=== PATIENT | male | born 1955 | race Asian ===

== ENCOUNTER 2017-05-07 19:01 | Inpatient (IN) | payer OTHER ==
[~2017-05-07] VITALS: Ht 167.6 cm; Wt 50.6 kg
[2017-05-07] MEDS ORDERED: CEPH500 PO (19:32)
[2017-05-07] MEDS ORDERED: QUET200T PO (19:32)
[2017-05-07] MEDS ORDERED: SEVEC800 PO (19:32)
[2017-05-07] MEDS ORDERED: CARV6 PO (19:32)
[2017-05-07 19:42] LABS: EOSINOPHILS % (AUTO) 1.5 % (1.0-6.0); HEMATOCRIT 35.4 % (41-53); HEMOGLOBIN 12.1 g/dL (13.5-17.5); LYMPHOCYTES # (AUTO) 0.3 K/uL (1.0-4.8); LYMPHOCYTES % (AUTO) 3.5 % (22.0-44.0); MEAN CORPUSCULAR HEMOGLOBIN 30.6 pg (26.0-34.0); MEAN CORPUSCULAR HGB CONC 34.2 G/dL (31.0-37.0); MEAN CORPUSCULAR VOLUME 90 fL (80-100); MONOCYTES % (AUTO) 0.3 % (2.0-9.0); NEUTROPHILS # (AUTO) 8.4 K/uL (1.8-7.7); NEUTROPHILS % (AUTO) 93.7 % (40.0-70.0); PLATELET COUNT (AUTO) 329 K/uL (150-450); RED BLOOD CELL COUNT(AUTO) 3.95 MIL/uL (4.50-5.90); RED CELL DISTRIBUTION WIDTH 16.9 % (11.5-14.5)
[2017-05-07 19:49] LABS: INR 0.9 (0.9-1.1)
[2017-05-07 20:06] LABS: B-TYPE NATRIURETIC PEPTIDE 170 pg/mL (0-100)
[2017-05-07 20:11] LABS: ANION GAP 12 mmol/L (8-16); CALCIUM, TOTAL 8.6 mg/dL (8.8-10.5); CARBON DIOXIDE 28 mmol/L (22-29); CHLORIDE 96 mmol/L (98-107); CREATININE 9.72 mg/dL (0.60-1.30); GLOMERULAR FILTR. RATE CALC 6 mL/min (>60); POTASSIUM 4.8 mmol/L (3.5-5.1); SODIUM SERUM 136 mmol/L (136-145); UREA NITROGEN, BLOOD 97 mg/dL (7-18)
[2017-05-07 20:22] LABS: ALANINE AMINOTRANSFERASE 58 U/L (12-78); ALBUMIN 3.7 g/dL (3.4-5.0); ASPARTATE AMINOTRANSFERASE 29 U/L (15-37); BILIRUBIN,TOTAL 0.3 mg/dL (0.1-1.0); CREATINE KINASE MB 2.4 ng/mL (0-5); CREATINE KINASE, TOTAL 81 U/L (39-308); TOTAL PROTEIN, SERUM 8.1 g/dL (6.4-8.2)
[2017-05-07] MEDS ORDERED: 0.9% SODIUM CHLORIDE 10 ML SYRINGE IVP PRN (20:45)
[2017-05-07] MEDS ORDERED: ACETAMINOPHEN 325 MG TABLET PO PRN (20:45)
[2017-05-07] MEDS ORDERED: ONDANSETRON HCL 4 MG/2 ML VIAL IVP PRN (20:45)
[2017-05-07 21:36] VITALS: BP 128/77
[2017-05-08 00:11] LABS: GLUCOSE,POINT OF CARE 145 MG/DL (70-110)
[2017-05-08 00:23] VITALS: BP 126/71
[2017-05-08] MEDS ORDERED: ZOLPIDEM TARTRATE 10 MG TABLET PO PRN (01:00)
[2017-05-08] MEDS ORDERED: MAGNESIUM HYDROXIDE SUSPENSION 30 ML UDCUP PO PRN (01:00)
[2017-05-08] MEDS ORDERED: IPRATROPIUM BROMIDE 0.5 MG/2.5 ML NEB SOLUTION NEB PRN (01:00)
[2017-05-08] MEDS ORDERED: MORPHINE SULFATE 2 MG/ML SYRINGE IVP PRN (01:00)
[2017-05-08 04:23] VITALS: BP 119/68
[2017-05-08] MEDS: NITROGLYCERIN 2% (1 GM=INCH) PACKET TP SCH ×3 (05:45→17:27)
[2017-05-08] MEDS ORDERED: PNEUMOCOCCAL VACCINE POLYVALENT 0.5 ML VIAL [PPSV23] IM ONE (06:45)
[2017-05-08 07:59] VITALS: BP 105/67
[2017-05-08] MEDS ORDERED: SEVELAMER CARBONATE 800 MG TABLET PO SCH (08:00)
[2017-05-08] MEDS: DOCUSATE SODIUM 100 MG CAPSULE PO SCH ×2 (08:27→19:41)
[2017-05-08] MEDS: CARVEDILOL 6.25 MG TABLET PO SCH ×2 (08:27→19:41)
[2017-05-08] MEDS: PANTOPRAZOLE SODIUM 40 MG/VIAL IVP SCH (08:28)
[2017-05-08 08:49] LABS: APPEARANCE,URINE TURBID (CLEAR); GLUCOSE, URINE (UA) NEGATIVE (NEGATIVE); KETONES,URINE 40 mg/dL (NEGATIVE); LEUKOCYTE ESTERASE ,URINE LARGE (NEGATIVE); OCCULT BLOOD,URINE LARGE (NEGATIVE); PH,URINE 5.5 (5.0-8.0); PROTEIN,URINE SEE CONFIRM (NEGATIVE)
[2017-05-08 10:06] LABS: ADD UA MICROSCOPIC YES
[2017-05-08 10:09] LABS: RBC,URINE Full Field /HPF (0-2); SULFOSALICYLIC ACID,URINE 4+ (Negative)
[2017-05-08 10:10] LABS: WBC,URINE >100 /HPF (0-5)
[2017-05-08] MEDS ORDERED: DEXTROSE 50%-WATER 25 GM/50 ML SYRINGE IVP PRN (11:00)
[2017-05-08 11:43] VITALS: BP 113/61
[2017-05-08] MEDS: SEVELAMER CARBONATE 800 MG TABLET PO SCH ×2 (12:21→17:27)
[2017-05-08] MEDS: INSULIN ASPART 100 UNITS/ML SQ PRN ×2 (12:24→18:04)
[2017-05-08] MEDS: VITAMIN B COMP/VIT C/FOLIC ACID CAPSULE PO SCH (13:13)
[2017-05-08] MEDS ORDERED: SODIUM CHLORIDE 0.9% 1,000 ML IV ONE (14:33)
[2017-05-08] MEDS: HYDROCODONE/ACETAMINOPHEN 5-325 MG TABLET PO PRN ×2 (15:30→19:41)
[2017-05-08 16:21] VITALS: BP 100/37
[2017-05-08] MEDS: ACETAMINOPHEN 325 MG TABLET PO PRN (17:27)
[2017-05-08] MEDS: CefTRIAXone 1 GM/DEXTROSE 50 ML IV SCH (18:00)
[2017-05-08 19:27] VITALS: BP 116/69
[2017-05-08] MEDS: HEPARIN SODIUM,PORCINE 5,000 UNITS/ML VIAL SQ SCH (19:41)
[2017-05-08] MEDS: QUEtiapine FUMARATE 200 MG TABLET PO SCH (19:41)
[2017-05-08 23:08] LABS: GLUCOSE COMMENT 1 Received Meds; GLUCOSE,POINT OF CARE 191 MG/DL (70-110)
[2017-05-08 23:08] LABS: GLUCOSE,POINT OF CARE 178 MG/DL (70-110)
[2017-05-08 23:08] LABS: GLUCOSE COMMENT 1 Received Meds; GLUCOSE,POINT OF CARE 142 MG/DL (70-110)
[2017-05-09] VITALS (11 sets, daily range): BP systolic 92–124; BP diastolic 45–75
[2017-05-09] MEDS: HYDROCODONE/ACETAMINOPHEN 5-325 MG TABLET PO PRN ×2 (01:53→18:09)
[2017-05-09] MEDS: NITROGLYCERIN 2% (1 GM=INCH) PACKET TP SCH ×4 (05:52→18:09)
[2017-05-09 06:16] LABS: EOSINOPHILS % (AUTO) 0.5 % (1.0-6.0); HEMATOCRIT 30.8 % (41-53); HEMOGLOBIN 10.6 g/dL (13.5-17.5); LYMPHOCYTES # (AUTO) 0.6 K/uL (1.0-4.8); LYMPHOCYTES % (AUTO) 5.3 % (22.0-44.0); MEAN CORPUSCULAR HEMOGLOBIN 30.8 pg (26.0-34.0); MEAN CORPUSCULAR HGB CONC 34.3 G/dL (31.0-37.0); MEAN CORPUSCULAR VOLUME 90 fL (80-100); MONOCYTES # (AUTO) 0.9 K/uL (0.1-1.0); MONOCYTES % (AUTO) 7.4 % (2.0-9.0); PLATELET COUNT (AUTO) 227 K/uL (150-450); RED BLOOD CELL COUNT(AUTO) 3.43 MIL/uL (4.50-5.90); RED CELL DISTRIBUTION WIDTH 17.2 % (11.5-14.5); WHITE BLOOD COUNT (AUTO) 11.5 K/uL (4.5-11.0)
[2017-05-09 07:01] LABS: NEUTROPHILS % (AUTO) 86.8 % (40.0-70.0)
[2017-05-09 07:07] LABS: CALCIUM, TOTAL 8.4 mg/dL (8.8-10.5); CHOL/HDL RATIO 2.5 (4.2-7.3); CREATININE 6.74 mg/dL (0.60-1.30); MAGNESIUM 2.5 mg/dL (1.80-2.40); PHOSPHORUS 5.1 mg/dL (2.5-4.9); POTASSIUM 4.6 mmol/L (3.5-5.1)
[2017-05-09] MEDS: SEVELAMER CARBONATE 800 MG TABLET PO SCH ×3 (08:09→18:09)
[2017-05-09] MEDS: PANTOPRAZOLE SODIUM 40 MG/VIAL IVP SCH (08:10)
[2017-05-09] MEDS: PRAVASTATIN SODIUM 20 MG TABLET PO SCH (08:10)
[2017-05-09] MEDS: CLOPIDOGREL BISULFATE 75 MG TABLET PO SCH (08:10)
[2017-05-09] MEDS: DOCUSATE SODIUM 100 MG CAPSULE PO SCH ×2 (08:10→20:49)
[2017-05-09] MEDS: HEPARIN SODIUM,PORCINE 5,000 UNITS/ML VIAL SQ SCH (08:11)
[2017-05-09] MEDS: CARVEDILOL 6.25 MG TABLET PO SCH ×2 (09:00→20:49)
[2017-05-09] MEDS ORDERED: SESTAMIBI TC99M/UD ISOTOPE 1 EA INJ INJ ONE ×2 (09:10→13:05)
[2017-05-09 10:08] LABS: RBC MORPHOLOGY COMMENT ABNORMAL RBC MORPH
[2017-05-09] MEDS ORDERED: REGADENOSON 0.4 MG/5 ML PF SYRINGE IVP ONE ×2 (12:00→12:59)
[2017-05-09] MEDS ORDERED: AMINOPHYLLINE 25 MG/ML 10 ML VIAL IVP ONE ×3 (12:00→13:10)
[2017-05-09] MEDS: VITAMIN B COMP/VIT C/FOLIC ACID CAPSULE PO SCH (13:44)
[2017-05-09] MEDS: CefTRIAXone 1 GM/DEXTROSE 50 ML IV SCH (13:45)
[2017-05-09] MEDS: INSULIN ASPART 100 UNITS/ML SQ PRN ×2 (13:47→18:10)
[2017-05-09] MEDS: ONDANSETRON HCL 4 MG/2 ML VIAL IVP PRN (13:59)
[2017-05-09 14:18] LABS: GLUCOSE COMMENT 1 Received Meds; GLUCOSE,POINT OF CARE 148 MG/DL (70-110)
[2017-05-09 14:18] LABS: GLUCOSE,POINT OF CARE 122 MG/DL (70-110)
[2017-05-09 18:03] LABS: APPEARANCE,URINE TURBID (CLEAR); GLUCOSE, URINE (UA) 100 mg/dL (NEGATIVE); KETONES,URINE >=80 mg/dL (NEGATIVE); LEUKOCYTE ESTERASE ,URINE LARGE (NEGATIVE); OCCULT BLOOD,URINE LARGE (NEGATIVE); PROTEIN,URINE SEE CONFIRM (NEGATIVE)
[2017-05-09 20:02] LABS: GLUCOSE COMMENT 1 Received Meds; GLUCOSE,POINT OF CARE 153 MG/DL (70-110)
[2017-05-09 20:11] LABS: RBC,URINE Full Field /HPF (0-2); SULFOSALICYLIC ACID,URINE 4+ (Negative)
[2017-05-09 20:13] LABS: WBC,URINE >100 /HPF (0-5)
[2017-05-09] MEDS: QUEtiapine FUMARATE 200 MG TABLET PO SCH (20:49)
[2017-05-09] MEDS: ACETAMINOPHEN 325 MG TABLET PO PRN (20:49)
[2017-05-09 21:43] LABS: GLUCOSE,POINT OF CARE 147 MG/DL (70-110)
[2017-05-10] VITALS (7 sets, daily range): BP systolic 102–139; BP diastolic 47–86
[2017-05-10] MEDS: NITROGLYCERIN 2% (1 GM=INCH) PACKET TP SCH ×5 (05:30→23:23)
[2017-05-10] MEDS ORDERED: SODIUM CHLORIDE 0.9% 1,000 ML IV ONE (05:57)
[2017-05-10] MEDS: HYDROCODONE/ACETAMINOPHEN 5-325 MG TABLET PO PRN ×2 (07:21→20:30)
[2017-05-10 07:25] LABS: HEMATOCRIT 29.7 % (41-53); MEAN CORPUSCULAR HEMOGLOBIN 30.4 pg (26.0-34.0); MEAN CORPUSCULAR HGB CONC 33.6 G/dL (31.0-37.0); MEAN CORPUSCULAR VOLUME 90 fL (80-100); PLATELET COUNT (AUTO) 198 K/uL (150-450); RED BLOOD CELL COUNT(AUTO) 3.29 MIL/uL (4.50-5.90); RED CELL DISTRIBUTION WIDTH 17.1 % (11.5-14.5)
[2017-05-10 07:40] LABS: ALBUMIN 3.1 g/dL (3.4-5.0); BILIRUBIN,TOTAL 0.3 mg/dL (0.1-1.0); CALCIUM, TOTAL 8.5 mg/dL (8.8-10.5); CREATININE 4.1 mg/dL (0.60-1.30); POTASSIUM 3.6 mmol/L (3.5-5.1); TOTAL PROTEIN, SERUM 7.6 g/dL (6.4-8.2)
[2017-05-10] MEDS: SEVELAMER CARBONATE 800 MG TABLET PO SCH ×3 (08:00→17:48)
[2017-05-10 08:06] LABS: BAND NEUTROPHILS % (MANUAL) 24 % (1-5); LYMPHOCYTES % (MANUAL) 15 % (22-44); TOTAL CELLS COUNTED 100
[2017-05-10 08:07] LABS: RBC MORPHOLOGY COMMENT ABNORMAL RBC MORPH
[2017-05-10] MEDS: CARVEDILOL 6.25 MG TABLET PO SCH ×2 (09:00→20:37)
[2017-05-10] MEDS: ONDANSETRON HCL 4 MG/2 ML VIAL IVP PRN (09:10)
[2017-05-10] MEDS: PANTOPRAZOLE SODIUM 40 MG/VIAL IVP SCH (09:10)
[2017-05-10] MEDS: CLOPIDOGREL BISULFATE 75 MG TABLET PO SCH (10:29)
[2017-05-10] MEDS: VITAMIN B COMP/VIT C/FOLIC ACID CAPSULE PO SCH (10:29)
[2017-05-10] MEDS: DOCUSATE SODIUM 100 MG CAPSULE PO SCH ×2 (10:29→20:29)
[2017-05-10] MEDS: PRAVASTATIN SODIUM 20 MG TABLET PO SCH (10:29)
[2017-05-10] MEDS: INSULIN ASPART 100 UNITS/ML SQ PRN ×2 (11:42→17:54)
[2017-05-10] MEDS: CefTRIAXone 1 GM/DEXTROSE 50 ML IV SCH (12:31)
[2017-05-10] MEDS ORDERED: MAGNESIUM CITRATE 300 ML ORAL SOLUTION PO PRN (16:15)
[2017-05-10] MEDS ORDERED: SODIUM CHLORIDE 0.9% 100 ML ONE (17:38)
[2017-05-10] MEDS: MEROPENEM 500 MG in SODIUM CHLORIDE 0.9% 50 ML IV SCH (18:11)
[2017-05-10] MEDS: QUEtiapine FUMARATE 200 MG TABLET PO SCH (20:29)
[2017-05-11 05:10] VITALS: BP 120/72
[2017-05-11] MEDS: NITROGLYCERIN 2% (1 GM=INCH) PACKET TP SCH ×4 (05:21→23:16)
[2017-05-11 06:33] LABS: GLUCOSE,POINT OF CARE 163 MG/DL (70-110)
[2017-05-11 06:33] LABS: GLUCOSE COMMENT 1 Received Meds; GLUCOSE,POINT OF CARE 162 MG/DL (70-110)
[2017-05-11] MEDS: INSULIN ASPART 100 UNITS/ML SQ PRN ×4 (06:40→21:10)
[2017-05-11 07:19] VITALS: BP 132/62
[2017-05-11 07:32] LABS: BASOPHILS # (AUTO) 0.01 K/uL (0.00-0.20); BASOPHILS % (AUTO) 0.1 % (0.0-2.0); EOSINOPHILS # (AUTO) 0.07 K/uL (0.00-0.70); HEMATOCRIT 28.4 % (41-53); HEMOGLOBIN 9.5 g/dL (13.5-17.5); LYMPHOCYTES # (AUTO) 0.5 K/uL (1.0-4.8); LYMPHOCYTES % (AUTO) 7.5 % (22.0-44.0); MEAN CORPUSCULAR HEMOGLOBIN 30.3 pg (26.0-34.0); MEAN CORPUSCULAR HGB CONC 33.6 G/dL (31.0-37.0); MEAN CORPUSCULAR VOLUME 90 fL (80-100); MONOCYTES # (AUTO) 0.7 K/uL (0.1-1.0); MONOCYTES % (AUTO) 10.5 % (2.0-9.0); NEUTROPHILS # (AUTO) 5.4 K/uL (1.8-7.7); NEUTROPHILS % (AUTO) 80.9 % (40.0-70.0); PLATELET COUNT (AUTO) 191 K/uL (150-450); RED BLOOD CELL COUNT(AUTO) 3.16 MIL/uL (4.50-5.90); RED CELL DISTRIBUTION WIDTH 16.5 % (11.5-14.5); WHITE BLOOD COUNT (AUTO) 6.7 K/uL (4.5-11.0)
[2017-05-11 07:36] LABS: INR 0.9 (0.9-1.1); PROTHROMBIN TIME 9.9 SEC (9.4-11.6)
[2017-05-11 07:55] LABS: CALCIUM, TOTAL 8.7 mg/dL (8.8-10.5); CREATININE 6.86 mg/dL (0.60-1.30); POTASSIUM 4.1 mmol/L (3.5-5.1)
[2017-05-11] MEDS: DOCUSATE SODIUM 100 MG CAPSULE PO SCH ×2 (08:32→21:00)
[2017-05-11] MEDS: PANTOPRAZOLE SODIUM 40 MG/VIAL IVP SCH (08:32)
[2017-05-11] MEDS: CLOPIDOGREL BISULFATE 75 MG TABLET PO SCH (08:32)
[2017-05-11] MEDS: VITAMIN B COMP/VIT C/FOLIC ACID CAPSULE PO SCH (08:33)
[2017-05-11] MEDS: SEVELAMER CARBONATE 800 MG TABLET PO SCH ×3 (08:33→17:02)
[2017-05-11] MEDS: CARVEDILOL 6.25 MG TABLET PO SCH ×2 (08:35→21:00)
[2017-05-11] MEDS: PRAVASTATIN SODIUM 20 MG TABLET PO SCH (08:44)
[2017-05-11 11:28] VITALS: BP 125/58
[2017-05-11 12:10] LABS: GLUCOSE,POINT OF CARE 99 MG/DL (70-110)
[2017-05-11 12:10] LABS: GLUCOSE,POINT OF CARE 224 MG/DL (70-110)
[2017-05-11 12:10] LABS: GLUCOSE COMMENT 1 Received Meds; GLUCOSE,POINT OF CARE 163 MG/DL (70-110)
[2017-05-11 12:10] LABS: GLUCOSE,POINT OF CARE 104 MG/DL (70-110)
[2017-05-11 15:24] VITALS: BP 149/77
[2017-05-11] MEDS: MEROPENEM 500 MG in SODIUM CHLORIDE 0.9% 50 ML IV SCH (17:02)
[2017-05-11 17:13] LABS: GLUCOSE,POINT OF CARE 171 MG/DL (70-110)
[2017-05-11 19:56] VITALS: BP 108/66
[2017-05-11] MEDS: QUEtiapine FUMARATE 200 MG TABLET PO SCH (21:00)
[2017-05-11] MEDS: HYDROCODONE/ACETAMINOPHEN 5-325 MG TABLET PO PRN (21:01)
[2017-05-11 22:08] LABS: GLUCOSE COMMENT 1 Received Meds; GLUCOSE,POINT OF CARE 189 MG/DL (70-110)
[2017-05-12] VITALS (7 sets, daily range): BP systolic 84–127; BP diastolic 51–84
[2017-05-12 04:20] LABS: APPEARANCE,URINE TURBID (CLEAR); GLUCOSE, URINE (UA) 100 mg/dL (NEGATIVE); KETONES,URINE 15 mg/dL (NEGATIVE); LEUKOCYTE ESTERASE ,URINE LARGE (NEGATIVE); OCCULT BLOOD,URINE LARGE (NEGATIVE); PROTEIN,URINE SEE CONFIRM (NEGATIVE)
[2017-05-12 04:35] LABS: SULFOSALICYLIC ACID,URINE 3+ (Negative)
[2017-05-12 04:36] LABS: RBC,URINE 51-100 /HPF (0-2); WBC,URINE 26-50 /HPF (0-5)
[2017-05-12] MEDS: NITROGLYCERIN 2% (1 GM=INCH) PACKET TP SCH ×4 (05:26→23:23)
[2017-05-12 06:28] LABS: CALCIUM, TOTAL 8.6 mg/dL (8.8-10.5); CREATININE 8.22 mg/dL (0.60-1.30)
[2017-05-12 06:36] LABS: INR 0.9 (0.9-1.1); PROTHROMBIN TIME 9.6 SEC (9.4-11.6)
[2017-05-12 07:35] LABS: BASOPHILS % (AUTO) 0.3 % (0.0-2.0); EOSINOPHILS % (AUTO) 1.7 % (1.0-6.0); HEMATOCRIT 28.7 % (41-53); HEMOGLOBIN 9.8 g/dL (13.5-17.5); LYMPHOCYTES # (AUTO) 0.6 K/uL (1.0-4.8); LYMPHOCYTES % (AUTO) 9.3 % (22.0-44.0); MEAN CORPUSCULAR HEMOGLOBIN 30.8 pg (26.0-34.0); MEAN CORPUSCULAR HGB CONC 34.1 G/dL (31.0-37.0); MEAN CORPUSCULAR VOLUME 90 fL (80-100); MONOCYTES # (AUTO) 0.6 K/uL (0.1-1.0); MONOCYTES % (AUTO) 9.2 % (2.0-9.0); NEUTROPHILS # (AUTO) 4.9 K/uL (1.8-7.7); NEUTROPHILS % (AUTO) 79.5 % (40.0-70.0); PLATELET COUNT (AUTO) 220 K/uL (150-450); RED BLOOD CELL COUNT(AUTO) 3.18 MIL/uL (4.50-5.90); RED CELL DISTRIBUTION WIDTH 16.8 % (11.5-14.5); WHITE BLOOD COUNT (AUTO) 6.2 K/uL (4.5-11.0)
[2017-05-12] MEDS: PANTOPRAZOLE SODIUM 40 MG/VIAL IVP SCH (08:20)
[2017-05-12] MEDS: DOCUSATE SODIUM 100 MG CAPSULE PO SCH ×2 (08:20→20:29)
[2017-05-12] MEDS: CARVEDILOL 6.25 MG TABLET PO SCH ×2 (08:20→20:29)
[2017-05-12] MEDS: VITAMIN B COMP/VIT C/FOLIC ACID CAPSULE PO SCH (08:20)
[2017-05-12] MEDS: SEVELAMER CARBONATE 800 MG TABLET PO SCH ×3 (08:20→18:14)
[2017-05-12] MEDS: PRAVASTATIN SODIUM 20 MG TABLET PO SCH (08:20)
[2017-05-12] MEDS ORDERED: SODIUM CHLORIDE 0.9% 2,000 ML IV ONE (10:20)
[2017-05-12 12:08] LABS: GLUCOSE,POINT OF CARE 177 MG/DL (70-110)
[2017-05-12] MEDS: INSULIN ASPART 100 UNITS/ML SQ PRN (12:14)
[2017-05-12] MEDS ORDERED: SODIUM CHLORIDE 0.9% IRRIG BTL 1,000 ML IRRIG ONE (15:52)
[2017-05-12 17:18] LABS: GLUCOSE,POINT OF CARE 100 MG/DL (70-110)
[2017-05-12] MEDS: MEROPENEM 500 MG in SODIUM CHLORIDE 0.9% 50 ML IV SCH (18:14)
[2017-05-12 19:58] LABS: GLUCOSE,POINT OF CARE 222 MG/DL (70-110)
[2017-05-12] MEDS: QUEtiapine FUMARATE 200 MG TABLET PO SCH (20:29)
[2017-05-12] MEDS: HYDROCODONE/ACETAMINOPHEN 5-325 MG TABLET PO PRN (20:30)
[2017-05-13] VITALS (18 sets, daily range): BP systolic 93–147; BP diastolic 57–106
[2017-05-13] MEDS: NITROGLYCERIN 2% (1 GM=INCH) PACKET TP SCH ×3 (05:27→17:51)
[2017-05-13 06:38] LABS: BASOPHILS % (AUTO) 0.3 % (0.0-2.0); EOSINOPHILS % (AUTO) 1.6 % (1.0-6.0); HEMATOCRIT 28.2 % (41-53); HEMOGLOBIN 9.7 g/dL (13.5-17.5); LYMPHOCYTES # (AUTO) 0.8 K/uL (1.0-4.8); LYMPHOCYTES % (AUTO) 11.6 % (22.0-44.0); MEAN CORPUSCULAR HEMOGLOBIN 30.8 pg (26.0-34.0); MEAN CORPUSCULAR HGB CONC 34.3 G/dL (31.0-37.0); MEAN CORPUSCULAR VOLUME 90 fL (80-100); MONOCYTES # (AUTO) 0.7 K/uL (0.1-1.0); MONOCYTES % (AUTO) 9.8 % (2.0-9.0); NEUTROPHILS # (AUTO) 5.3 K/uL (1.8-7.7); NEUTROPHILS % (AUTO) 76.7 % (40.0-70.0); PLATELET COUNT (AUTO) 233 K/uL (150-450); RED BLOOD CELL COUNT(AUTO) 3.13 MIL/uL (4.50-5.90); RED CELL DISTRIBUTION WIDTH 16.4 % (11.5-14.5); WHITE BLOOD COUNT (AUTO) 6.9 K/uL (4.5-11.0)
[2017-05-13 06:42] LABS: INR 0.9 (0.9-1.1); PROTHROMBIN TIME 9.9 SEC (9.4-11.6)
[2017-05-13 07:12] LABS: CREATININE 5.29 mg/dL (0.60-1.30); MAGNESIUM 2.8 mg/dL (1.80-2.40); PHOSPHORUS 3.1 mg/dL (2.5-4.9); POTASSIUM 4.8 mmol/L (3.5-5.1)
[2017-05-13] MEDS: SEVELAMER CARBONATE 800 MG TABLET PO SCH ×3 (08:00→17:42)
[2017-05-13] MEDS ORDERED: SODIUM BICARBONATE 50 MEQ/50 ML VIAL ONE (08:41)
[2017-05-13] MEDS ORDERED: LIDOCAINE HCL/PF 1% 30 ML VIAL ONE (08:41)
[2017-05-13] MEDS ORDERED: IOHEXOL 300 MG/ML 150 ML VIAL ONE (08:41)
[2017-05-13] MEDS: VITAMIN B COMP/VIT C/FOLIC ACID CAPSULE PO SCH (09:00)
[2017-05-13] MEDS: DOCUSATE SODIUM 100 MG CAPSULE PO SCH ×2 (09:00→20:25)
[2017-05-13] MEDS: GABAPENTIN 100 MG CAPSULE PO SCH (09:00)
[2017-05-13] MEDS: PRAVASTATIN SODIUM 20 MG TABLET PO SCH (09:00)
[2017-05-13] MEDS: CARVEDILOL 6.25 MG TABLET PO SCH ×2 (09:00→20:24)
[2017-05-13] MEDS: PANTOPRAZOLE SODIUM 40 MG/VIAL IVP SCH (09:00)
[2017-05-13] MEDS ORDERED: MIDAZOLAM HCL 2 MG/2 ML VIAL ONE (09:35)
[2017-05-13] MEDS ORDERED: FentaNYL CITRATE-PF 100 MCG/2 ML VIAL ONE (09:35)
[2017-05-13] MEDS ORDERED: HEPARIN SODIUM 1000 UNITS/NS 1,000 ML IARTER ONE (09:48)
[2017-05-13] MEDS ORDERED: SODIUM CHLORIDE 0.9% 500 ML IV ONE (09:48)
[2017-05-13] MEDS ORDERED: FentaNYL CITRATE-PF 100 MCG/2 ML VIAL IVP ONE (10:00)
[2017-05-13] MEDS ORDERED: LIDOCAINE 1% 30 ML/SOD BICARB 8.4% 4 ML SQ ONE (10:00)
[2017-05-13] MEDS ORDERED: IOHEXOL 300 MG/ML 150 ML VIAL IARTER ONE (10:00)
[2017-05-13] MEDS ORDERED: MIDAZOLAM HCL 2 MG/2 ML VIAL IVP ONE (10:00)
[2017-05-13] MEDS ORDERED: NITROGLYCERIN 400 MCG/SUBLINGUAL SPRAY 4.9 GM BOTTLE SL ONE ×2 (10:01→10:15)
[2017-05-13 14:33] LABS: GLUCOSE,POINT OF CARE 93 MG/DL (70-110)
[2017-05-13 14:48] LABS: GLUCOSE,POINT OF CARE 94 MG/DL (70-110)
[2017-05-13 14:48] LABS: GLUCOSE COMMENT 1 Received Meds; GLUCOSE,POINT OF CARE 225 MG/DL (70-110)
[2017-05-13] MEDS ORDERED: SODIUM CHLORIDE 0.9% 250 ML IV ONE (15:51)
[2017-05-13] MEDS: NITROGLYCERIN 400 MCG/SUBLINGUAL SPRAY 4.9 GM BOTTLE SL PRN ×2 (16:44→20:14)
[2017-05-13] MEDS: INSULIN ASPART 100 UNITS/ML SQ PRN (17:25)
[2017-05-13] MEDS: MEROPENEM 500 MG in SODIUM CHLORIDE 0.9% 50 ML IV SCH (17:51)
[2017-05-13] MEDS: QUEtiapine FUMARATE 200 MG TABLET PO SCH (20:24)
[2017-05-14] MEDS: NITROGLYCERIN 2% (1 GM=INCH) PACKET TP SCH ×3 (00:04→12:00)
[2017-05-14 04:00] VITALS: BP 116/60
[2017-05-14 04:43] VITALS: BP 116/60
[2017-05-14 06:48] LABS: GLUCOSE,POINT OF CARE 133 MG/DL (70-110)
[2017-05-14 06:48] LABS: GLUCOSE COMMENT 1 Received Meds; GLUCOSE,POINT OF CARE 149 MG/DL (70-110)
[2017-05-14 06:50] LABS: BASOPHILS % (AUTO) 0.4 % (0.0-2.0); EOSINOPHILS % (AUTO) 2.3 % (1.0-6.0); HEMATOCRIT 24.9 % (41-53); HEMOGLOBIN 8.6 g/dL (13.5-17.5); LYMPHOCYTES # (AUTO) 0.9 K/uL (1.0-4.8); LYMPHOCYTES % (AUTO) 11.9 % (22.0-44.0); MEAN CORPUSCULAR HEMOGLOBIN 30.8 pg (26.0-34.0); MEAN CORPUSCULAR HGB CONC 34.7 G/dL (31.0-37.0); MEAN CORPUSCULAR VOLUME 89 fL (80-100); MONOCYTES # (AUTO) 0.7 K/uL (0.1-1.0); MONOCYTES % (AUTO) 9.1 % (2.0-9.0); NEUTROPHILS # (AUTO) 5.9 K/uL (1.8-7.7); NEUTROPHILS % (AUTO) 76.3 % (40.0-70.0); PLATELET COUNT (AUTO) 236 K/uL (150-450); RED CELL DISTRIBUTION WIDTH 16.2 % (11.5-14.5); WHITE BLOOD COUNT (AUTO) 7.8 K/uL (4.5-11.0)
[2017-05-14 07:17] LABS: ALBUMIN 2.5 g/dL (3.4-5.0); BILIRUBIN,TOTAL 0.2 mg/dL (0.1-1.0); CALCIUM, TOTAL 8.7 mg/dL (8.8-10.5); CREATININE 6.99 mg/dL (0.60-1.30); POTASSIUM 5.2 mmol/L (3.5-5.1); TOTAL PROTEIN, SERUM 6.8 g/dL (6.4-8.2)
[2017-05-14 07:20] VITALS: BP 106/62
[2017-05-14 07:28] LABS: GLUCOSE,POINT OF CARE 138 MG/DL (70-110)
[2017-05-14] MEDS: SEVELAMER CARBONATE 800 MG TABLET PO SCH ×2 (08:06→12:00)
[2017-05-14] MEDS: HYDROCODONE/ACETAMINOPHEN 5-325 MG TABLET PO PRN (08:06)
[2017-05-14] MEDS: PANTOPRAZOLE SODIUM 40 MG/VIAL IVP SCH (08:07)
[2017-05-14] MEDS: NITROGLYCERIN 400 MCG/SUBLINGUAL SPRAY 4.9 GM BOTTLE SL PRN (08:26)
[2017-05-14] MEDS: CARVEDILOL 6.25 MG TABLET PO SCH (09:00)
[2017-05-14 11:17] VITALS: BP 91/60
[2017-05-14] MEDS: DOCUSATE SODIUM 100 MG CAPSULE PO SCH (14:27)
[2017-05-14] MEDS: PRAVASTATIN SODIUM 20 MG TABLET PO SCH (14:27)
[2017-05-14] MEDS: GABAPENTIN 100 MG CAPSULE PO SCH (14:27)
[2017-05-14] MEDS: VITAMIN B COMP/VIT C/FOLIC ACID CAPSULE PO SCH (14:27)
[2017-05-14 14:58] LABS: GLUCOSE COMMENT 1 Received Meds; GLUCOSE,POINT OF CARE 144 MG/DL (70-110)
[2017-05-14 15:04] VITALS: BP 101/57
[2017-05-15] MEDS ORDERED: EPOETIN ALFA 10,000 UNITS/ML VIAL SQ SCH (09:00)
== END 2017-05-14 17:45 | disposition short-term general hospital (02) | DRG 191 ==
LOC: EMS 19:04 → 5N 20:43 → ICU 05-13 11:00 → 5N 05-13 18:50
PROVIDERS: ADMIT Hospitalist; ATTEND Hospitalist
PROC: 02HV33Z Insertion of Infusion Device into Superior Vena Cava, Percutaneous Approach (ICD-10-PCS; 2017-05-07)
PROC: 5A1D70Z Performance of Urinary Filtration, Intermittent, Less than 6 Hours Per Day (ICD-10-PCS; 2017-05-08)
PROC: 5A1D70Z Performance of Urinary Filtration, Intermittent, Less than 6 Hours Per Day (ICD-10-PCS; 2017-05-10)
PROC: 5A1D70Z Performance of Urinary Filtration, Intermittent, Less than 6 Hours Per Day (ICD-10-PCS; 2017-05-12)
PROC: 4A023N7 Measurement of Cardiac Sampling and Pressure, Left Heart, Percutaneous Approach (ICD-10-PCS; principal; 2017-05-13)
PROC: B2111ZZ Fluoroscopy of Multiple Coronary Arteries using Low Osmolar Contrast (ICD-10-PCS; 2017-05-13)
PROC: B2151ZZ Fluoroscopy of Left Heart using Low Osmolar Contrast (ICD-10-PCS; 2017-05-13)
PROC: 5A1D70Z Performance of Urinary Filtration, Intermittent, Less than 6 Hours Per Day (ICD-10-PCS; 2017-05-14)
DX: I25.110 Atherosclerotic heart disease of native coronary artery with unstable angina pectoris (principal); E11.22 Type 2 diabetes mellitus with diabetic chronic kidney disease; K92.2 Gastrointestinal hemorrhage, unspecified; I12.0 Hypertensive chronic kidney disease with stage 5 chronic kidney disease or end stage renal disease; N18.6 End stage renal disease; E87.5 Hyperkalemia; R47.1 Dysarthria and anarthria; N39.0 Urinary tract infection, site not specified; R31.0 Gross hematuria; I69.351 Hemiplegia and hemiparesis following cerebral infarction affecting right dominant side; Z99.2 Dependence on renal dialysis; Z88.6 Allergy status to analgesic agent; Z79.899 Other long term (current) drug therapy; Z93.3 Colostomy status; Z85.048 Personal history of other malignant neoplasm of rectum, rectosigmoid junction, and anus; Z92.3 Personal history of irradiation; Z92.21 Personal history of antineoplastic chemotherapy
CPT/HCPCS: 74176; 78452; 82962; 83735; 84100; 87081; 87086; 87340; 90471; 90935; 93005; 93017; 93306; 93880; 93970; 99285; A9500; C9113; J0280; J0696; J1644; J2185; J2250; J2270; J2405; J2785; J3010; J3490; J7030; J7050; Q9967

== ENCOUNTER 2017-05-26 01:45 | Inpatient (IN) | payer OTHER ==
[2017-05-26] VITALS (7 sets, daily range): BP systolic 88–111; BP diastolic 50–61
[~2017-05-26] VITALS: Ht 175.3 cm; Wt 52.7 kg
[~2017-05-26 01:45] MED LIST: CARV6 PO; CEPH500 PO; QUET200T PO; SEVEC800 PO
[2017-05-26] MEDS ORDERED: DSS100 PO (01:52)
[2017-05-26] MEDS ORDERED: FOLI0.8T22 PO (01:52)
[2017-05-26] MEDS ORDERED: DOCU250C91 PO (01:52)
[2017-05-26] MEDS ORDERED: SIMV-260 PO (01:52)
[2017-05-26] MEDS ORDERED: CARV3 PO (01:52)
[2017-05-26] MEDS ORDERED: ISOS10TA16 PO (01:52)
[2017-05-26] MEDS ORDERED: PANT40TA25 PO (01:52)
[2017-05-26] MEDS ORDERED: NTP TD (01:54)
[2017-05-26] MEDS ORDERED: NITR0.4T50 SL (01:54)
[2017-05-26] MEDS ORDERED: 0.9% SODIUM CHLORIDE 10 ML SYRINGE IVP PRN (02:00)
[2017-05-26] MEDS ORDERED: SODIUM CHLORIDE 0.9% 500 ML IV ONE (02:00)
[2017-05-26 02:18] LABS: BASOPHILS % (AUTO) 0.1 % (0.0-2.0); EOSINOPHILS % (AUTO) 0.2 % (1.0-6.0); HEMATOCRIT 26.4 % (41-53); HEMOGLOBIN 8.9 g/dL (13.5-17.5); LYMPHOCYTES # (AUTO) 0.4 K/uL (1.0-4.8); LYMPHOCYTES % (AUTO) 3.7 % (22.0-44.0); MEAN CORPUSCULAR HEMOGLOBIN 30.7 pg (26.0-34.0); MEAN CORPUSCULAR HGB CONC 33.9 G/dL (31.0-37.0); MEAN CORPUSCULAR VOLUME 90 fL (80-100); MONOCYTES # (AUTO) 0.2 K/uL (0.1-1.0); MONOCYTES % (AUTO) 1.9 % (2.0-9.0); NEUTROPHILS # (AUTO) 9.7 K/uL (1.8-7.7); PLATELET COUNT (AUTO) 314 K/uL (150-450); RED BLOOD CELL COUNT(AUTO) 2.91 MIL/uL (4.50-5.90); RED CELL DISTRIBUTION WIDTH 18.3 % (11.5-14.5); WHITE BLOOD COUNT (AUTO) 10.3 K/uL (4.5-11.0)
[2017-05-26 02:20] LABS: NEUTROPHILS % (AUTO) 94.1 % (40.0-70.0)
[2017-05-26 02:28] LABS: ANION GAP 12 mmol/L (8-16); CALCIUM, TOTAL 8.7 mg/dL (8.8-10.5); CARBON DIOXIDE 28 mmol/L (22-29); CHLORIDE 97 mmol/L (98-107); CREATININE 4.37 mg/dL (0.60-1.30); GLOMERULAR FILTR. RATE CALC 14 mL/min (>60); SODIUM SERUM 137 mmol/L (136-145); UREA NITROGEN, BLOOD 36 mg/dL (7-18)
[2017-05-26 02:30] LABS: PROTHROMBIN TIME 10.9 SEC (9.4-11.6)
[2017-05-26 02:35] LABS: ALANINE AMINOTRANSFERASE 14 U/L (12-78); ALBUMIN 3.1 g/dL (3.4-5.0); ASPARTATE AMINOTRANSFERASE 16 U/L (15-37); BILIRUBIN,TOTAL 0.4 mg/dL (0.1-1.0); CREATINE KINASE, TOTAL 57 U/L (39-308); TOTAL PROTEIN, SERUM 7.3 g/dL (6.4-8.2)
[2017-05-26 02:37] LABS: LACTIC ACID 1.9 mmol/L (0.4-2.0)
[2017-05-26 02:40] LABS: INFLUENZA TYPE B NEGATIVE FOR TYPE B (NEGATIVE)
[2017-05-26 02:41] LABS: B-TYPE NATRIURETIC PEPTIDE 361 pg/mL (0-100)
[2017-05-26] MEDS ORDERED: SODIUM CHLORIDE 0.9% 250 ML IV ONE ×2 (02:45→03:45)
[2017-05-26] MEDS ORDERED: ONDANSETRON HCL 4 MG/2 ML VIAL IVP ONE (04:00)
[2017-05-26] MEDS ORDERED: MORPHINE SULFATE 4 MG/ML SYRINGE IVP ONE (04:00)
[2017-05-26 04:03] LABS: PROCALCITONIN (PCT) 1.86 ng/mL (<0.50)
[2017-05-26] MEDS ORDERED: SIMVASTATIN 20 MG TABLET PO SCH (10:30)
[2017-05-26] MEDS ORDERED: ISOSORBIDE DINITRATE 10 MG TABLET PO SCH (10:30)
[2017-05-26] MEDS ORDERED: DEXTROSE 50%-WATER 25 GM/50 ML SYRINGE IVP PRN ×2 (10:45→11:45)
[2017-05-26] MEDS ORDERED: INSULIN REGULAR, HUMAN 100 UNITS/ML SQ PRN (10:45)
[2017-05-26] MEDS: SEVELAMER CARBONATE 800 MG TABLET PO SCH ×2 (11:28→17:40)
[2017-05-26] MEDS: PANTOPRAZOLE SODIUM 40 MG DR TABLET PO SCH (11:28)
[2017-05-26] MEDS: DOCUSATE SODIUM 100 MG CAPSULE PO SCH (11:28)
[2017-05-26] MEDS: HYDROCODONE/ACETAMINOPHEN 5-325 MG TABLET PO PRN ×3 (11:37→22:55)
[2017-05-26 11:47] LABS: CHOL/HDL RATIO 1.9 (4.2-7.3)
[2017-05-26] MEDS: INSULIN ASPART 100 UNITS/ML SQ PRN ×2 (12:02→20:35)
[2017-05-26] MEDS ORDERED: METOPROLOL TARTRATE 25 MG TABLET PO SCH (13:00)
[2017-05-26] MEDS ORDERED: NITROGLYCERIN 2% (1 GM=INCH) PACKET TP SCH (13:00)
[2017-05-26] MEDS: CLOPIDOGREL BISULFATE 75 MG TABLET PO SCH (14:02)
[2017-05-26] MEDS: VITAMIN B COMP/VIT C/FOLIC ACID CAPSULE PO SCH (14:05)
[2017-05-26] MEDS: ROSUVASTATIN CALCIUM 20 MG TABLET PO SCH (15:02)
[2017-05-26 15:43] LABS: GLUCOSE,POINT OF CARE 166 MG/DL (70-110)
[2017-05-26] MEDS ORDERED: SODIUM CHLORIDE 0.9% 0 ML ONE (16:57)
[2017-05-26] MEDS ORDERED: SODIUM CHLORIDE 0.9% 150 ML IV ONE (17:00)
[2017-05-26 20:12] LABS: GLUCOSE,POINT OF CARE 120 MG/DL (70-110)
[2017-05-26] MEDS ORDERED: ACETAMINOPHEN 325 MG TABLET PO PRN (22:00)
[2017-05-26] MEDS: QUEtiapine FUMARATE 200 MG TABLET PO SCH (22:55)
[2017-05-27] MEDS: PANTOPRAZOLE SODIUM 40 MG DR TABLET PO SCH (05:36)
[2017-05-27 05:51] VITALS: BP 118/74
[2017-05-27 06:39] LABS: BASOPHILS % (AUTO) 0.3 % (0.0-2.0); EOSINOPHILS % (AUTO) 5.9 % (1.0-6.0); HEMOGLOBIN 8.2 g/dL (13.5-17.5); LYMPHOCYTES # (AUTO) 0.8 K/uL (1.0-4.8); LYMPHOCYTES % (AUTO) 8.6 % (22.0-44.0); MEAN CORPUSCULAR VOLUME 91 fL (80-100); MONOCYTES # (AUTO) 0.4 K/uL (0.1-1.0); MONOCYTES % (AUTO) 4.1 % (2.0-9.0); NEUTROPHILS # (AUTO) 7.8 K/uL (1.8-7.7); NEUTROPHILS % (AUTO) 81.1 % (40.0-70.0); PLATELET COUNT (AUTO) 286 K/uL (150-450); RED BLOOD CELL COUNT(AUTO) 2.64 MIL/uL (4.50-5.90); RED CELL DISTRIBUTION WIDTH 17.8 % (11.5-14.5); WHITE BLOOD COUNT (AUTO) 9.6 K/uL (4.5-11.0)
[2017-05-27 07:05] LABS: ALBUMIN 2.5 g/dL (3.4-5.0); BILIRUBIN,TOTAL 0.3 mg/dL (0.1-1.0); CALCIUM, TOTAL 8.5 mg/dL (8.8-10.5); CREATININE 6.62 mg/dL (0.60-1.30); MAGNESIUM 2.3 mg/dL (1.80-2.40); PHOSPHORUS 5.5 mg/dL (2.5-4.9); POTASSIUM 4.7 mmol/L (3.5-5.1); TOTAL PROTEIN, SERUM 6.4 g/dL (6.4-8.2)
[2017-05-27 07:23] LABS: GLUCOSE,POINT OF CARE 193 MG/DL (70-110)
[2017-05-27 07:23] LABS: GLUCOSE,POINT OF CARE 114 MG/DL (70-110)
[2017-05-27 07:51] VITALS: BP 92/56
[2017-05-27] MEDS: EPOETIN ALFA 10,000 UNITS/ML VIAL SQ SCH (08:33)
[2017-05-27] MEDS: CLOPIDOGREL BISULFATE 75 MG TABLET PO SCH (08:34)
[2017-05-27] MEDS: ROSUVASTATIN CALCIUM 20 MG TABLET PO SCH (08:34)
[2017-05-27] MEDS: DOCUSATE SODIUM 100 MG CAPSULE PO SCH (08:35)
[2017-05-27] MEDS: SEVELAMER CARBONATE 800 MG TABLET PO SCH ×3 (08:35→18:41)
[2017-05-27] MEDS: VITAMIN B COMP/VIT C/FOLIC ACID CAPSULE PO SCH (08:35)
[2017-05-27 09:11] LABS: RBC MORPHOLOGY COMMENT ABNORMAL RBC MORPH
[2017-05-27 11:18] VITALS: BP 122/73
[2017-05-27] MEDS: INSULIN ASPART 100 UNITS/ML SQ PRN ×2 (12:11→17:36)
[2017-05-27] MEDS: NITROGLYCERIN 0.4 MG SUBLINGUAL TABLET #25 SL PRN ×2 (12:50→22:09)
[2017-05-27 15:49] VITALS: BP 103/61
[2017-05-27 19:49] VITALS: BP 114/64
[2017-05-27] MEDS: QUEtiapine FUMARATE 200 MG TABLET PO SCH (20:21)
[2017-05-27] MEDS: HYDROCODONE/ACETAMINOPHEN 5-325 MG TABLET PO PRN (20:21)
[2017-05-28] VITALS (7 sets, daily range): BP systolic 97–146; BP diastolic 57–80
[2017-05-28] MEDS: PANTOPRAZOLE SODIUM 40 MG DR TABLET PO SCH (05:46)
[2017-05-28 06:13] LABS: GLUCOSE,POINT OF CARE 121 MG/DL (70-110)
[2017-05-28 07:11] LABS: BASOPHILS % (AUTO) 0.6 % (0.0-2.0); EOSINOPHILS % (AUTO) 9.2 % (1.0-6.0); HEMATOCRIT 24.1 % (41-53); HEMOGLOBIN 8.2 g/dL (13.5-17.5); LYMPHOCYTES # (AUTO) 0.8 K/uL (1.0-4.8); LYMPHOCYTES % (AUTO) 10.4 % (22.0-44.0); MEAN CORPUSCULAR HEMOGLOBIN 30.6 pg (26.0-34.0); MEAN CORPUSCULAR HGB CONC 33.9 G/dL (31.0-37.0); MEAN CORPUSCULAR VOLUME 90 fL (80-100); MONOCYTES # (AUTO) 0.6 K/uL (0.1-1.0); MONOCYTES % (AUTO) 8.1 % (2.0-9.0); NEUTROPHILS # (AUTO) 5.7 K/uL (1.8-7.7); NEUTROPHILS % (AUTO) 71.7 % (40.0-70.0); PLATELET COUNT (AUTO) 282 K/uL (150-450); RED BLOOD CELL COUNT(AUTO) 2.67 MIL/uL (4.50-5.90); WHITE BLOOD COUNT (AUTO) 7.9 K/uL (4.5-11.0)
[2017-05-28 07:34] LABS: ALBUMIN 2.4 g/dL (3.4-5.0); BILIRUBIN,TOTAL 0.3 mg/dL (0.1-1.0); CALCIUM, TOTAL 8.5 mg/dL (8.8-10.5); CREATININE 7.96 mg/dL (0.60-1.30); MAGNESIUM 2.3 mg/dL (1.80-2.40); POTASSIUM 4.4 mmol/L (3.5-5.1); TOTAL PROTEIN, SERUM 6.3 g/dL (6.4-8.2)
[2017-05-28] MEDS: DOCUSATE SODIUM 100 MG CAPSULE PO SCH (08:19)
[2017-05-28] MEDS: ROSUVASTATIN CALCIUM 20 MG TABLET PO SCH (08:19)
[2017-05-28] MEDS: CLOPIDOGREL BISULFATE 75 MG TABLET PO SCH (08:19)
[2017-05-28] MEDS: SEVELAMER CARBONATE 800 MG TABLET PO SCH ×3 (08:19→21:25)
[2017-05-28] MEDS: NITROGLYCERIN 0.4 MG SUBLINGUAL TABLET #25 SL PRN ×3 (08:59→12:33)
[2017-05-28] MEDS: VITAMIN B COMP/VIT C/FOLIC ACID CAPSULE PO SCH (09:00)
[2017-05-28] MEDS: MORPHINE SULFATE 2 MG/ML SYRINGE IVP PRN ×2 (09:01→19:46)
[2017-05-28 09:38] LABS: RBC MORPHOLOGY COMMENT ABNORMAL RBC MORPH
[2017-05-28] MEDS: INSULIN ASPART 100 UNITS/ML SQ PRN ×2 (12:13→17:24)
[2017-05-28 14:32] LABS: GLUCOSE,POINT OF CARE 132 MG/DL (70-110)
[2017-05-28 14:32] LABS: GLUCOSE,POINT OF CARE 164 MG/DL (70-110)
[2017-05-28 14:32] LABS: GLUCOSE COMMENT 1 Received Meds; GLUCOSE,POINT OF CARE 253 MG/DL (70-110)
[2017-05-28 14:32] LABS: GLUCOSE COMMENT 1 Received Meds; GLUCOSE,POINT OF CARE 162 MG/DL (70-110)
[2017-05-28] MEDS ORDERED: SODIUM CHLORIDE 0.9% 2,000 ML IV ONE (15:13)
[2017-05-28] MEDS: HYDROCODONE/ACETAMINOPHEN 5-325 MG TABLET PO PRN ×2 (15:45→22:35)
[2017-05-28] MEDS ORDERED: MANNITOL 25%-12.5 GM/50 ML VIAL IVP PRN (16:30)
[2017-05-28 19:42] LABS: GLUCOSE,POINT OF CARE 153 MG/DL (70-110)
[2017-05-28] MEDS ORDERED: HYDROCORTISONE 2.5% 30 GM CREAM TP PRN (19:45)
[2017-05-28] MEDS: QUEtiapine FUMARATE 200 MG TABLET PO SCH (21:25)
[2017-05-29] VITALS (10 sets, daily range): BP systolic 107–158; BP diastolic 62–104
[2017-05-29] MEDS: NITROGLYCERIN 0.4 MG SUBLINGUAL TABLET #25 SL PRN ×3 (00:45→02:39)
[2017-05-29 02:42] LABS: GLUCOSE COMMENT 1 Received Meds; GLUCOSE,POINT OF CARE 173 MG/DL (70-110)
[2017-05-29] MEDS: MORPHINE SULFATE 2 MG/ML SYRINGE IVP PRN ×2 (02:46→20:11)
[2017-05-29] MEDS: PANTOPRAZOLE SODIUM 40 MG DR TABLET PO SCH (06:34)
[2017-05-29] MEDS: DOCUSATE SODIUM 100 MG CAPSULE PO SCH (08:03)
[2017-05-29] MEDS: ROSUVASTATIN CALCIUM 20 MG TABLET PO SCH (08:03)
[2017-05-29] MEDS: CLOPIDOGREL BISULFATE 75 MG TABLET PO SCH (08:03)
[2017-05-29] MEDS: SEVELAMER CARBONATE 800 MG TABLET PO SCH ×3 (08:03→18:03)
[2017-05-29] MEDS: EPOETIN ALFA 10,000 UNITS/ML VIAL SQ SCH (08:04)
[2017-05-29] MEDS: VITAMIN B COMP/VIT C/FOLIC ACID CAPSULE PO SCH (08:04)
[2017-05-29] MEDS ORDERED: METOPROLOL SUCCINATE 25 MG ER TABLET PO ONE (08:15)
[2017-05-29] MEDS: INSULIN ASPART 100 UNITS/ML SQ PRN ×3 (12:20→22:46)
[2017-05-29 12:53] LABS: GLUCOSE COMMENT 1 Received Meds; GLUCOSE,POINT OF CARE 162 MG/DL (70-110)
[2017-05-29] MEDS: QUEtiapine FUMARATE 200 MG TABLET PO SCH (20:46)
[2017-05-29 21:52] LABS: GLUCOSE,POINT OF CARE 131 MG/DL (70-110)
[2017-05-29] MEDS: HYDROCODONE/ACETAMINOPHEN 5-325 MG TABLET PO PRN (22:04)
[2017-05-29] MEDS ORDERED: MORPHINE SULFATE 2 MG/ML SYRINGE IVP ONE (22:30)
[2017-05-29] MEDS ORDERED: NITROGLYCERIN 50 MG/D5% WATER 250 ML IV PRN (23:41)
[2017-05-30] VITALS (9 sets, daily range): BP systolic 93–150; BP diastolic 54–95
[2017-05-30] MEDS ORDERED: NITROGLYCERIN 50 MG/D5% WATER 250 ML ONE (00:24)
[2017-05-30 05:33] LABS: BASOPHILS # (AUTO) 0.04 K/uL (0.00-0.20); BASOPHILS % (AUTO) 0.5 % (0.0-2.0); EOSINOPHILS % (AUTO) 9.49 % (1.0-6.0); HEMATOCRIT 27.4 % (41-53); HEMOGLOBIN 9.1 g/dL (13.5-17.5); LYMPHOCYTES # (AUTO) 0.9 K/uL (1.0-4.8); LYMPHOCYTES % (AUTO) 11.1 % (22.0-44.0); MEAN CORPUSCULAR HEMOGLOBIN 30.2 pg (26.0-34.0); MEAN CORPUSCULAR HGB CONC 33.4 G/dL (31.0-37.0); MEAN CORPUSCULAR VOLUME 91 fL (80-100); MONOCYTES # (AUTO) 0.6 K/uL (0.1-1.0); MONOCYTES % (AUTO) 7.1 % (2.0-9.0); NEUTROPHILS % (AUTO) 71.8 % (40.0-70.0); PLATELET COUNT (AUTO) 287 K/uL (150-450); RED BLOOD CELL COUNT(AUTO) 3.02 MIL/uL (4.50-5.90); RED CELL DISTRIBUTION WIDTH 16.8 % (11.5-14.5); WHITE BLOOD COUNT (AUTO) 8.4 K/uL (4.5-11.0)
[2017-05-30 05:44] LABS: ALBUMIN 2.6 g/dL (3.4-5.0); BILIRUBIN,TOTAL 0.3 mg/dL (0.1-1.0); CREATININE 5.8 mg/dL (0.60-1.30); POTASSIUM 4.9 mmol/L (3.5-5.1); TOTAL PROTEIN, SERUM 6.7 g/dL (6.4-8.2)
[2017-05-30] MEDS: PANTOPRAZOLE SODIUM 40 MG DR TABLET PO SCH (07:20)
[2017-05-30 07:37] LABS: GLUCOSE COMMENT 1 Received Meds; GLUCOSE,POINT OF CARE 157 MG/DL (70-110)
[2017-05-30] MEDS ORDERED: HEPARIN SODIUM,PORCINE 5,000 UNITS/ML VIAL IVP ONE (08:00)
[2017-05-30] MEDS ORDERED: HEPARIN SODIUM,PORCINE 5,000 UNITS/ML VIAL IVP PRN (08:00)
[2017-05-30 08:27] LABS: GLUCOSE,POINT OF CARE 100 MG/DL (70-110)
[2017-05-30 08:41] LABS: PROTHROMBIN TIME 10.8 SEC (9.4-11.6)
[2017-05-30] MEDS: SEVELAMER CARBONATE 800 MG TABLET PO SCH ×3 (08:57→17:39)
[2017-05-30] MEDS: VITAMIN B COMP/VIT C/FOLIC ACID CAPSULE PO SCH (08:57)
[2017-05-30] MEDS: CLOPIDOGREL BISULFATE 75 MG TABLET PO SCH (08:58)
[2017-05-30] MEDS: NITROGLYCERIN 2% (1 GM=INCH) PACKET TP SCH ×3 (08:58→23:03)
[2017-05-30] MEDS: DOCUSATE SODIUM 100 MG CAPSULE PO SCH (09:05)
[2017-05-30] MEDS: METOPROLOL SUCCINATE 25 MG ER TABLET PO SCH (09:06)
[2017-05-30] MEDS: ROSUVASTATIN CALCIUM 20 MG TABLET PO SCH (09:10)
[2017-05-30] MEDS: HEPARIN SODIUM 25000 UNITS/D5W 250 ML IV PRN ×2 (09:51→17:45)
[2017-05-30 11:43] LABS: GLUCOSE COMMENT 1 Received Meds; GLUCOSE,POINT OF CARE 146 MG/DL (70-110)
[2017-05-30] MEDS ORDERED: MANNITOL 25%-12.5 GM/50 ML VIAL IVP PRN (16:30)
[2017-05-30] MEDS: HEPARIN SODIUM,PORCINE 5,000 UNITS/ML VIAL IVP PRN (17:44)
[2017-05-30] MEDS: MORPHINE SULFATE 2 MG/ML SYRINGE IVP PRN (17:54)
[2017-05-30 18:13] LABS: GLUCOSE COMMENT 1 Received Meds; GLUCOSE,POINT OF CARE 128 MG/DL (70-110)
[2017-05-30] MEDS: QUEtiapine FUMARATE 200 MG TABLET PO SCH (22:04)
[2017-05-30] MEDS: HYDROCODONE/ACETAMINOPHEN 5-325 MG TABLET PO PRN (22:05)
[2017-05-30] MEDS: INSULIN ASPART 100 UNITS/ML SQ PRN (23:01)
[2017-05-31] VITALS (7 sets, daily range): BP systolic 106–134; BP diastolic 61–90
[2017-05-31] MEDS: HEPARIN SODIUM,PORCINE 5,000 UNITS/ML VIAL IVP PRN (01:41)
[2017-05-31 03:37] LABS: GLUCOSE,POINT OF CARE 186 MG/DL (70-110)
[2017-05-31 05:11] LABS: ALBUMIN 2.7 g/dL (3.4-5.0); BILIRUBIN,TOTAL 0.3 mg/dL (0.1-1.0); CALCIUM, TOTAL 8.9 mg/dL (8.8-10.5); CREATININE 4.3 mg/dL (0.60-1.30); MAGNESIUM 1.8 mg/dL (1.80-2.40); PHOSPHORUS 4.3 mg/dL (2.5-4.9); TOTAL PROTEIN, SERUM 7.2 g/dL (6.4-8.2)
[2017-05-31 05:40] LABS: BASOPHILS % (AUTO) 1.1 % (0.0-2.0); EOSINOPHILS % (AUTO) 6.7 % (1.0-6.0); HEMATOCRIT 26.8 % (41-53); HEMOGLOBIN 9.1 g/dL (13.5-17.5); LYMPHOCYTES # (AUTO) 1.3 K/uL (1.0-4.8); LYMPHOCYTES % (AUTO) 13.4 % (22.0-44.0); MEAN CORPUSCULAR HEMOGLOBIN 30.5 pg (26.0-34.0); MEAN CORPUSCULAR HGB CONC 33.9 G/dL (31.0-37.0); MEAN CORPUSCULAR VOLUME 90 fL (80-100); MONOCYTES # (AUTO) 0.6 K/uL (0.1-1.0); MONOCYTES % (AUTO) 6.4 % (2.0-9.0); NEUTROPHILS # (AUTO) 7.2 K/uL (1.8-7.7); NEUTROPHILS % (AUTO) 72.4 % (40.0-70.0); PLATELET COUNT (AUTO) 319 K/uL (150-450); RED BLOOD CELL COUNT(AUTO) 2.99 MIL/uL (4.50-5.90)
[2017-05-31] MEDS: PANTOPRAZOLE SODIUM 40 MG DR TABLET PO SCH (06:30)
[2017-05-31 07:44] LABS: RBC MORPHOLOGY COMMENT ABNORMAL RBC MORPH
[2017-05-31 08:12] LABS: GLUCOSE,POINT OF CARE 94 MG/DL (70-110)
[2017-05-31] MEDS: CLOPIDOGREL BISULFATE 75 MG TABLET PO SCH (09:40)
[2017-05-31] MEDS: ROSUVASTATIN CALCIUM 20 MG TABLET PO SCH (09:40)
[2017-05-31] MEDS: METOPROLOL SUCCINATE 25 MG ER TABLET PO SCH (09:40)
[2017-05-31] MEDS: VITAMIN B COMP/VIT C/FOLIC ACID CAPSULE PO SCH (09:41)
[2017-05-31] MEDS: DOCUSATE SODIUM 100 MG CAPSULE PO SCH (09:41)
[2017-05-31] MEDS: EPOETIN ALFA 10,000 UNITS/ML VIAL SQ SCH (09:41)
[2017-05-31] MEDS: SEVELAMER CARBONATE 800 MG TABLET PO SCH ×3 (09:43→18:03)
[2017-05-31] MEDS: MORPHINE SULFATE 2 MG/ML SYRINGE IVP PRN ×2 (10:35→15:41)
[2017-05-31] MEDS: HEPARIN SODIUM 25000 UNITS/D5W 250 ML IV PRN (10:58)
[2017-05-31] MEDS: INSULIN ASPART 100 UNITS/ML SQ PRN (12:01)
[2017-05-31 14:02] LABS: GLUCOSE,POINT OF CARE 104 MG/DL (70-110)
[2017-05-31 14:07] LABS: GLUCOSE COMMENT 1 Received Meds; GLUCOSE,POINT OF CARE 161 MG/DL (70-110)
[2017-05-31] MEDS: HYDROCODONE/ACETAMINOPHEN 5-325 MG TABLET PO PRN (14:33)
[2017-05-31 16:37] LABS: GLUCOSE,POINT OF CARE 123 MG/DL (70-110)
[2017-05-31] MEDS: QUEtiapine FUMARATE 200 MG TABLET PO SCH (20:06)
== END 2017-05-31 20:35 | disposition short-term general hospital (02) | DRG 190 ==
LOC: EMS 01:46 → 5N 05:22 → ICU 05-30 00:05
PROVIDERS: ADMIT Hospitalist; ATTEND Hospitalist
PROC: 5A1D70Z Performance of Urinary Filtration, Intermittent, Less than 6 Hours Per Day (ICD-10-PCS; principal; 2017-05-28)
PROC: 5A1D70Z Performance of Urinary Filtration, Intermittent, Less than 6 Hours Per Day (ICD-10-PCS; 2017-05-30)
DX: I21.4 Non-ST elevation (NSTEMI) myocardial infarction (principal); R57.1 Hypovolemic shock; G93.40 Encephalopathy, unspecified; I13.2 Hypertensive heart and chronic kidney disease with heart failure and with stage 5 chronic kidney disease, or end stage renal disease; N18.6 End stage renal disease; D64.9 Anemia, unspecified; E11.22 Type 2 diabetes mellitus with diabetic chronic kidney disease; I69.351 Hemiplegia and hemiparesis following cerebral infarction affecting right dominant side; E78.00 Pure hypercholesterolemia, unspecified; I25.110 Atherosclerotic heart disease of native coronary artery with unstable angina pectoris; I50.9 Heart failure, unspecified; Z66 Do not resuscitate; Z99.2 Dependence on renal dialysis; Z79.84 Long term (current) use of oral hypoglycemic drugs; Z79.899 Other long term (current) drug therapy; I25.2 Old myocardial infarction; Z88.8 Allergy status to other drugs, medicaments and biological substances; Z85.048 Personal history of other malignant neoplasm of rectum, rectosigmoid junction, and anus; Z87.891 Personal history of nicotine dependence; Z92.3 Personal history of irradiation; Z82.49 Family history of ischemic heart disease and other diseases of the circulatory system; Z83.3 Family history of diabetes mellitus
CPT/HCPCS: 70450; 82962; 83540; 83550; 83605; 83735; 84100; 84145; 87040; 87081; 87340; 87804; 90935; 93005; 96361; 96374; 96375; 99291; J0885; J1644; J2270; J2405; J3490; J7030; J7040; J7050